=== PATIENT | female | born 1945 | race Caucasian/White ===

== ENCOUNTER 2019-05-09 11:38 | Emergency (ER) | payer MEDICARE, OTHER ==
--- NOTE | 2019-05-09 12:06 | ED ---
HPI Chest Pain - HPI Summary HPI Summary: Patient is a 73 y old F presenting to [facility] accompanied with son with chief complaint of intermittent chest pain which radiates across her upper back since 21:00 last night (05/08/19) which patient currently rates at 7/10 in severity. Patient describes chest pain as pressure and as if someone is "sitting" on her chest. Symptoms alleviated by nothing and aggravated by sitting upright. Patient reports nausea, vomiting, shortness of breath. Patient reports diaphoresis and chills last night which have resolved. PMHx diabetes, hypercholesterolemia, and atrial fibrillation. Patient denies PMHx CA. Patient takes blood thinners. - History of Current Complaint Chief Complaint: EDChestPainROMI Time Seen by Provider: 05/09/19 11:53 Hx Obtained From: Patient Onset/Duration: Started Hours Ago - Since 2100 last night, Still Present Timing: Intermittent Current Severity: Moderate - 7/10 currently Pain Intensity: 7 Pain Scale Used: 0-10 Numeric Chest Pain Radiates: Yes Chest Pain Radiates To:: Back Character: Pressure/Squeezing Aggravating Factor(s): Position - sitting up Alleviating Factor(s): Nothing Associated Signs and Symptoms: Positive: Shortness of Breath, Nausea, Vomiting - Allergy/Home Medications Allergies/Adverse Reactions: Allergies Allergy/AdvReac Type Severity Reaction Status Date / Time erythromycin base Allergy Unknown Verified 05/09/19 11:50 Reaction Details Penicillins Allergy Unknown Verified 05/09/19 11:50 Reaction Details PMH/Surg Hx/FS Hx/Imm Hx Previously Healthy: No Endocrine/Hematology History: Reports: Hx Diabetes Cardiovascular History: Reports: Hx Atrial Fibrillation, Hx Hypercholesterolemia Denies: Hx Hypotension - Surgical History Surgery Procedure, Year, and Place: Hernia Repair, cholecystectomy, blocked bowel surgery (X2) Infectious Disease History: No Infectious Disease History: Denies: Traveled Outside the [place] in Last 30 Days - Family History Known Family History: Positive: Cardiac Disease - Mother- Coronary Artery Disease, Father- Heart conditions , Diabetes - Social History Alcohol Use: Occasionally Hx Substance Use: No Substance Use Type: Reports: None Hx Tobacco Use: Yes Smoking Status (MU): Former Smoker Review of Systems Positive: Chest Pain Positive: Shortness Of Breath Positive: Vomiting, Nausea All Other Systems Reviewed And Are Negative: Yes Physical Exam - Summary Physical Exam Summary: VITAL SIGNS: Reviewed. GENERAL: Patient is a well-developed and nourished FEMALE who is lying comfortable in the stretcher. Patient is not in any acute respiratory distress. HEAD AND FACE: No signs of trauma. No ecchymosis, hematomas or skull depressions. No sinus tenderness. EYES: PERRLA, EOMI x 2, No injected conjunctiva, no nystagmus. EARS: Hearing grossly intact. Ear canals and tympanic membranes are within normal limits. MOUTH: Oropharynx within normal limits. NECK: Supple, trachea is midline, no adenopathy, no JVD, no carotid bruit, no c- spine tenderness, neck with full ROM. CHEST: Symmetric, no tenderness at palpation. LUNGS: Clear to auscultation bilaterally. No wheezing or crackles. CVS: Regular rate and rhythm, S1 and S2 present, no murmurs or gallops appreciated. ABDOMEN: Soft, non-tender. No signs of distention. No rebound, no guarding, and no masses palpated. Bowel sounds are normal. EXTREMITIES: FROM in all major joints, no edema, no cyanosis or clubbing. NEURO: Alert and oriented x 3. No acute neurological deficits. Speech is normal and follows commands. SKIN: Dry and warm. Triage Information Reviewed: Yes Vital Signs On Initial Exam: Initial Vitals Temp Pulse Resp BP Pulse Ox 96.6 F 87 18 143/79 96 05/09/19 11:46 05/09/19 11:46 05/09/19 11:46 05/09/19 11:46 05/09/19 11:46 Vital Signs Reviewed: Yes Diagnostics - Vital Signs Vital Signs Temp Pulse Resp BP Pulse Ox 05/09/19 11:46 96.6 F 87 18 143/79 96 - Laboratory Result Diagrams: 05/09/19 12:37 05/09/19 12:37 Lab Statement: Any lab studies that have been ordered have been reviewed, and results considered in the medical decision making process. - Radiology Chest X-Ray Radiology Interpretation Completed By: Radiologist Summary of Radiographic Findings: Per radiologist,. 1. Stigmata of obstructive lung disease. No acute pulmonary or cardiac process evident. ED physician has reviewed this report. - EKG 1141 Cardiac Rate: NL - 84 BPM EKG Rhythm: Sinus Rhythm Summary of EKG Findings: Sinus rhythm 84 BPM, No ST elevations. Re-Evaluation - Re-Evaluation First Eval Re-Evaluation Time: 16:24 Comment: Physician discusses discharge with patient. Patient agrees with discharge. Chest Pain Course/Dx - Course Assessment/Plan: Patient is a 73 y old F presenting to [facility] accompanied with son with chief complaint of intermittent chest pain which radiates across her upper back since 21:00 last night (05/08/19) which patient currently rates at 7/ 10 in severity. Patient describes chest pain as pressure and as if someone is "sitting" on her chest. Symptoms alleviated by nothing and aggravated by sitting upright. Patient reports nausea, vomiting, and shortness of breath. Patient reports diaphoresis and chills last night which have resolved. PMHx diabetes, hypercholesterolemia, and atrial fibrillation. Patient denies PMHx CA. Patient takes blood thinners. Test results show no significant abnormalities, except for glucose of 180 and magnesium 1.8. The troponin is 0.00. EKG is a normal sinus rhythm without any ST elevations. Chest x-ray impression: Stigmata of obstructive lung disease. No acute pulmonary or cardiac process evident. Second troponin 4 hours apart still is 0.00. The patient was given Zofran for slight nausea. After these medications the patient s symptoms have resolved. The patient is feeling better and asymptomatic. Therefore she will be discharged home with follow-up with PCP. Heart score is equal to 2. Therefore no increased suspicion for an acute coronary syndrome. The patient doesnt have any tachycardia or hypoxia and therefore no suspicion for PE. I discussed all the findings and test results with the patient. Patient was instructed to return to the emergency room immediately if any of the symptoms return worsens. Plan of care was discussed with the patient and understands and agrees. All questions were answered at patient satisfaction. There were no further complaints or concerns. Lung exam before discharge: CTA B/ L. Good air exchange. No wheezing or crackles heard. CVS: S1 and S2 present. No murmurs appreciated. Patient is alert and oriented x 3. Patient is hemodynamically stable. Patient will be discharged home with follow up PCP in the next 2-3 days - Diagnoses Provider Diagnoses: Atypical chest pain Is Visit Related: No Discharge - Sign-Out/Discharge Documenting (check all that apply): Patient Departure - discharge Patient Received Moderate/Deep Sedation with Procedure: No - Discharge Plan Condition: Stable Disposition: HOME Prescriptions: Ondansetron ODT TAB* [Zofran 4 MG Odt TAB*] 4 mg PO Q8H PRN #10 tab.odt PRN Reason: Nausea Patient Education Materials: Chest Pain (ED) Referrals: [facility] [Outside] - 3 Days Additional Instructions: Follow up with primary care provider within 3 days. Return to emergency department for any new or worsening symptoms. - Attestation Statements Document Initiated by Scribe: Yes Documenting Scribe: Yessy Nagy Provider For Whom Scribe is Documenting (Include Credential): Koffi Gong MD Scribe Attestation: IEly Alison Kim, scribed for Koffi Gong MD on 05/09/19 at 1656. Status of Scribe Document: Ready
[2019-05-09] MEDS ORDERED: Aspirin 81 mg CHEW TAB* 81 MG TAB.CHEW PO ONE (12:07)
[2019-05-09 12:44] LABS: ABS Eosinophils 0.3 10^3/ul (0-0.6); ABS Lymphocytes 0.9 10^3/ul (1.0-4.8); ABS Monocytes 0.4 10^3/ul (0-0.8); Eosinophil % 4.3 %; Hematocrit 41 % (35-47); Hemoglobin 14.2 g/dL (12.0-16.0); Lymphocyte % 14.2 %; Mean Corpuscular HGB Conc 35 g/dL (31-36); Mean Corpuscular Hemoglobin 32 pg (27-31); Mean Corpuscular Volume 91 fL (80-97); Mean Platelet Volume 7.6 fL (7.4-10.4); Platelet Count 175 10^3/uL (150-450); Red Cell Distribution Width 15 % (10-15); White Blood Count 6.7 10^3/uL (3.5-10.8)
[2019-05-09 12:57] LABS: INR 1.02 (0.82-1.09)
[2019-05-09 13:01] LABS: Magnesium 1.7 mg/dL (1.9-2.7)
[2019-05-09 13:02] LABS: Albumin 4.5 g/dL (3.2-5.2); Albumin/Globulin Ratio 1.4 (1-3); BUN/Creatinine Ratio 14.6 (8-20); Calcium 10.1 mg/dL (8.6-10.3); EGFR African American 82.7 (>60); EGFR Non-African American 68.3 (>60); Globulin 3.2 g/dL (2-4); Potassium 4.1 mmol/L (3.5-5.0); Total Bilirubin 0.8 mg/dL (0.2-1.0); Total Protein 7.7 g/dL (6.4-8.9)
[2019-05-09 13:06] LABS: CKMB ng/mL 1.5 ng/mL (0.6-6.3)
[2019-05-09 13:26] LABS: TSH (Thyroid Stimulating Horm) 0.41 mcIU/mL (0.34-5.60)
[2019-05-09 16:18] VITALS: BP 131/79
[2019-05-09] MEDS ORDERED: Ondansetron ODT TAB* 4 MG SL PRN (16:25)
== END 2019-05-09 16:41 | disposition home or self-care (01) ==
LOC: ED 11:38
DX: R07.89 Other chest pain (principal); I48.91 Unspecified atrial fibrillation; E11.9 Type 2 diabetes mellitus without complications; E78.00 Pure hypercholesterolemia, unspecified; Z88.0 Allergy status to penicillin; Z88.1 Allergy status to other antibiotic agents
CPT/HCPCS: 36415; 71045; 80053; 82550; 82553; 83735; 83880; 84443; 84484; 85025; 85610; 85730; 93005; 99283; A9270-GY